=== PATIENT | male | born 1945 | race African-American/Black ===

== ENCOUNTER 2023-05-24 14:06 | Outpatient (REF) | payer MEDICARE, SELFPAY ==
[2023-05-24 15:52] LABS: Vitamin B12 477 pg/mL (200-900)
== END 2023-05-24 14:07 | disposition home or self-care (01) ==
LOC: HO.LAB 14:06
PROVIDERS: PCP Internal Medicine; Visit Provider Psychiatry & Neurology Neurology
DX: G30.9 Alzheimer's disease, unspecified (principal)
CPT/HCPCS: 36415; 82607

== ENCOUNTER 2024-07-11 09:10 | Outpatient (REF) | payer MEDICARE, SELFPAY ==
[2024-07-11 10:32] LABS: Erythrocyte Sedimentation Rate 5 MM/HR (0-15)
[2024-07-11 12:05] LABS: Folate 6.4 ng/mL (> or = 4.0); Vitamin B12 346 pg/mL (200-900)
[2024-07-11 12:50] LABS: Alanine Aminotransferase 26 U/L (0-40); Alkaline Phosphatase 86 U/L (39-117); Anion Gap 10 (12-20); Aspartate Amino Transferase 24 U/L (5-37); Bilirubin Direct 0.2 mg/dL (0.0-0.5); Blood Urea Nitrogen 14 mg/dL (9-16); Calcium 9.4 mg/dL (8.4-10.2); Carbon Dioxide 27 mmol/L (22-29); Chloride 111 mmol/L (96-108); Glucose Random 73 mg/dL (60-115); Sodium 144 mmol/L (135-145); Total Protein 7.4 g/dL (6.5-8.0)
[2024-07-11 12:59] LABS: Thyroid Stimulating Hormone 2.05 uIU/mL (0.32-4.0)
[2024-07-11 14:09] LABS: Albumin Level 4.5 g/dL (3.5-5.0); Bilirubin Total 0.6 mg/dL (0.0-1.0); Estimated Glomerular Filt Rate > 60
[2024-07-12 18:37] LABS: Lyme Abs Screen <0.90 index
== END 2024-07-11 09:11 | disposition home or self-care (01) ==
LOC: HO.LAB 09:10
PROVIDERS: PCP Internal Medicine; Visit Provider Psychiatry & Neurology Neurology
DX: G12.20 Motor neuron disease, unspecified (principal)
CPT/HCPCS: 36415; 80048; 80076; 82550; 82607; 82746; 84443; 85652; 86617; 86618

== ENCOUNTER 2024-10-10 08:21 | Outpatient (AMB) | payer MEDICARE, SELFPAY ==
--- NOTE | 2024-10-10 08:30 | MHC.OFFVIS ---
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 Initial labs including B12, TSH and folate were normal. In June of 2024, he complain of cramping and weakness. His examination revealed atrophy and fasciculations suggestive of motor neuron disease. EMG nerve conduction study suggested [id number] chronic axonal peripheral neuropathy. 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 He is presenting with concerns primarily related to dysphagia. He reports occasional difficulty swallowing, with food sometimes feeling like it hesitates or requires more perceptible effort to pass through. He acknowledges fluctuations in oral secretions without significant disruption to daily life. Handwriting has become unstable and non-linear, although his ability to perform daily activities and self-care, such as managing utensils and dressing, remains generally unaffected though slightly more labor-intensive. He reports gait difficulties, particularly during initial ambulation in the morning, accompanied by a reluctance to navigate stairs due to fear. No respiratory distress is reported. Additionally, the patient has noticed a general loss of muscle mass potentially contributing to these challenges. These symptoms reflect a broader concern of progression in physical capability and strength. [facility] Medical History (Updated 10/10/24 @ 08:48 by Valentine Randolph MD) Motor neuron disease Alzheimer disease Review of Systems Const Details: - Neurological: Reports difficulty with handwriting; denies issues with utensils or dressing. - Gastrointestinal: Reports dysphagia; denies persistent issues with swallowing. - Musculoskeletal: Reports difficulty walking, especially stairs; concerned about muscle wasting. - Respiratory: Denies breathing difficulties. - General: Reports excessive salivation intermittently. Physical Exam Neuro Other: Mental Status: Alert and oriented to person, place, and time. Normal attention. Normal spontaneous speech, fluency, and comprehension. No obvious issues with mood and memory. Affect is appropriate. Cranial Nerves: CN II: Visual zambrano full to confrontation, visual acuity intact. CN III, IV, : Pupils equal, round, reactive to light and accommodation. Extraocular movements are normal. CN V: Facial sensation is normal. CN VII: Facial movements symmetrical. CN VIII: Hearing intact to bedside conversation is normal. CN IX, X: Palate elevates symmetrically. CN XI: Shoulder shrug and head turn symmetrical. CN XII: Tongue midline without atrophy or fasciculations. Widespread atrophy in muscles with fasciculations. DTRs are trace. Extrapyramidal: Full facial expressions and blinking. No rigidity. Movements are appropriate with no tremor or abnormality. Speech: Normal; no dysarthria or tremor. 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 07/31/24 Code(s): G12.20 - Motor neuron disease, unspecified Category: Medical Plan Impression: Motor neuron disease. For now, there was no evidence of upper motor neuron involvement. Disease seems to be all lower motor neuron type. Recommendations: Ready, oral treatment was started today. Family was advised to get more information about this condition and a reference was provided. This would help to make some complex decisions that might have to be made in near future. Medications: New edaravone (Radicava ORS) 105 mg orally a day for 10 days and then off for 20 days every month; administer for 10 days of a 28-day cycle 50 mL 2RF Coding Level of Care Code Est Pt Level 4 (13331) Diagnoses Motor neuron disease G12.20
--- OUTSIDE RECORDS SUMMARY | 2024-10-10 09:01 | XMS_ITS ---
Author Name [facility] Organization Unknown Care Team Organization Name Specialty Phone Email Start Date End Da te [facility] 12/29/2021 10/10/19 24
== END 2024-10-10 08:53 | disposition home or self-care (01) ==
LOC: HO.HSM 08:22
PROVIDERS: PCP Internal Medicine; Referring Provider Internal Medicine; Visit Provider Psychiatry & Neurology Neurology
DX: G12.20 Motor neuron disease, unspecified (principal)
CPT/HCPCS: 99214

== ENCOUNTER → 2024-10-10 08:21 | Outpatient (BNVA) | payer MEDICARE, SELFPAY | PROVIDERS: PCP Internal Medicine; Referring Provider Internal Medicine; Visit Provider Psychiatry & Neurology Neurology | DX: G12.20 Motor neuron disease, unspecified (principal); F03.90 Unspecified dementia, unspecified severity, without behavioral disturbance, psychotic disturbance, mood disturbance, and anxiety; R26.9 Unspecified abnormalities of gait and mobility; R13.10 Dysphagia, unspecified | CPT/HCPCS: 99212 ==

== ENCOUNTER 2024-11-22 08:19 | Outpatient (REF) | payer MEDICARE, SELFPAY ==
--- NOTE | ~2024-11-22 | FL_ITS ---
EXAMINATION: Barium swallow with air. Clinical indications: Dysphagia COMPARISON: None. TECHNIQUE: Routine barium swallow upright with thick barium, effervescent granules and saltine crackers coated with barium was performed. Thin barium was administered in prone lying position. FINDINGS: On oral administration of thick barium there is normal propagation bolus from the oral cavity through the pharynx, esophagus into stomach without obstruction, narrowing or stricture. On oral administration of saltine crackers coated barium paste there is normal oral mastication and propagation of bolus from the oral cavity, pharynx, esophagus into stomach. No obstruction or or narrowing seen. No extrinsic compression. No laryngeal penetration and aspiration seen. There is minimal barium retention in the valleculae and piriform sinuses which clears with subsequent dry swallowing. On oral administration of thin barium in prone lying position there is normal antegrade flow of barium from the pharynx, esophagus into stomach. There is normal distention of esophagus without intraluminal filling defect. There is no extrinsic compression. There is no hiatal hernia or gastroesophageal reflux seen. FL/FL barium swallow with air IMPRESSION: Unremarkable barium in upright and lying position. Electronically signed by: Gabe Mejia MD 11/22/2024 01:03 PM EDT
--- OUTSIDE RECORDS SUMMARY | 2024-11-22 08:28 | XMS_ITS | Data Portability ---
Author Organization [place] - [facility], Allergy Address 100 [facility] 100 [place] [address] Care Team Providers Care X Ray Service Engineer Name Role Phone ISRAEL HUBBARD Primary Care Provider [phone] Assessment Encounter Date Assessment Date Assessment LastModified by Organization Details LastModified Time 10/27/2023 10/27/2023 Patient referred for medical clearance for hearing aids. He reports a slow gradual decline in hearing over the years. Reports a history of middle ear effusions. Audiometric testing not available to me today. Physical exam and tympanometry rule out effusions today. Addendum 10/28/23: Audiometric testing dated 04/20/23 from [facility] was reviewed today. Patient with bilateral mixed hearing loss. There is some asymmetry. Given age and comorbidities, would not recommend retrocochlear workup. Medically cleared for binaural amplification. Recommend annual audiometric testing, sooner with perceived change or new otologic issues. [email or web address] Not available 10/28/2023 16:44:01 Plan of Treatment Reminders Order Date Submit Date Provider Last Modified By Organization Details Last Modified Time Details Appointments None record ed. Lab None record ed. Referral None record ed. Procedures None record ed. Surgeries None record ed. Imaging None record ed. Medication Orders None record ed. Patient TargetsNo targets recorded. Patient InstructionsNo instructions recorded. Reason for Referral None Reported. Results Created Date Observation Date Name Description Value Unit Range Abnormal Flag Note LastModifiedBy Organization Detail LastModifiedTime 10/28/19 audio gram No observ ation record ed. [email or web address] Not Available 07/2023 08:41:50 Result Notes None recorded. Problems Name Problem SNOMED Code Status Onset Date Resolution Date Notes Provider Name and Address Organization Details Recorded Time Abnormal auditory perception 84130667 Active 2023 Laila mccray MA [facility] 4 11:57:54 Sensorineural hearing loss of bilateral ears 745514779 Active 2023 JAUN WASHINGTON, [facility] [address], [address] [facility] [place] 4 09:33:49 Problem Notes None recorded. Procedures Surgical History Date Name Laterality Status Provider Name and Address Organization Details Recorded Time 10/27/19 24 Tympanometry - 16681 completed Laila Duran MA [facility] 10/27/2023 11:57:35 Imaging Results None recorded. Procedure Notes None recorded. Medical Equipment None Reported. Allergies No known drug allergies Medications Name Sig Start Date Stop Date Status Note LastModified by Organization Details LastModified Time donepezil 5 mg tablet TAKE 1 TABLET BY MOUTH EVERY DAY AT BEDTIME FOR 90 DAYS 10/26 completed Not Available Not Available Not Available donepezil 10 mg tablet TAKE 1 TABLET BY MOUTH EVERY DAY AT BEDTIME active Not Available Not Available No t Available neomycin-angelcia ymyxin-dexam eth 3.5 mg/mL-10,000 unit/mL-0.1% eye drops INSTILL 1 DROP INTO BOTH EYES FOUR TIMES A DAY USE FOR 2 WEEKS THEN STOP 10/26 completed Not Available Not Available Not Available omeprazole 20 mg capsule,yi yed release TAKE 1 CAPSULE BY MOUTH EVERY DAY active Not Available Not Available No t Available Vitals Date Recorded Body height Body mass index (BMI) Body weight Provider Name and Address Organization Details Last Updated DateTime 10/27/2023 180.34 cm 21.9 kg/m2 36577 g Tona Foley [facility] 10/27/2023 10:51:51 Social History None recorded. Functional Status None recorded. Mental Status None recorded. Family History Nothing Reported. Medical History No medical history recorded. Past Encounters Encounter ID Performer Location Encounter Start Date Encounter Closed Date Diagnosis/Indication Diagnosis SNOMED-CT Code Diagnosis ICD10 Code Diagnosis IMO Codes Diagnosis Note [id number] RICKY CHASE PA-C [facility] - [facility] 100 [place] [address] 10/27/2023 10:42:26 10/27/2023 12:33:53 Abnormal auditory perception 67002734 H93.299 Tympanomet ry: Right Ear:Type A Left Ear:Type A [id number] [facility] [place] 100 [facility],[place] 100 [place] [address] 11/04/2023 09:02:54 11/07/2023 10:28:16 Sensorineural hearing loss of bilateral ears 847525865 H90.3 Health Concerns Section Related Observation LastModified by Organization Detai ls LastModified Time None Recorded Concern Status LastModified by Organization Details LastModified Time None Recorded Advance Directives Directive None Recorded Payers Insurance Date Sequence Insurance Name Policy Number Policy Dave Covered Member ID Dave Member ID Guarantor Name 11/02/2023 1 [facility] [id number] Jovan Pena [id number] Jovan Pena Notes Date Note Type Note Provider Name and Address Organization Details Recorded Time 10/27/2023 text/html ROS as noted in the HPI 78 year old male presents with son for evaluation of ears. Reports gradual bilateral decrease in hearing over several years. There is aural pressure in the ears and a sound of fluid moving when he presses on the tragus. There has been no otorrhea. Used to work in factories with lots of machinery. Intermittent use of hearing protection with that. No significant otologic history. He did have an audiogram a few weeks ago that is not available to me today. Ricky mccray [place] - [facility] [place] [facility] 10/28/2023 16:44:32 11/04/2023 text/html Pt is here today with son. Pt is a new user of hearing aids. Here today due to difficulty in some situations. He feels like he is hearing okay but the son abd family state otherwise. Lifestyle: likes to stay at home. Mostly in one on one conversations or small groups. Discussed type, technology levels, and manufacturers of hearing aids. His insurance benefit is through [employer]. He is unable to use that benefit here and is aware of this. They are going to look into the [employer] option. They have my email if they decide not to move forward with them. Type of phone: no smart phone If he is to move forward with us he will be ordering basic technology. We did not decide on flyer maker today. Leaning toward phonak due to accessible button. But he was also interested in the Widex with the remote as an add on. JAUN WASHINGTON, [address],[place] [address], [place], [address], [facility] - [facility] 11/04/2023 09:33:58
== END 2024-11-22 08:20 | disposition home or self-care (01) ==
LOC: HO.XRAY 08:19
PROVIDERS: PCP Internal Medicine; Visit Provider Psychiatry & Neurology Neurology
DX: R13.10 Dysphagia, unspecified (principal)
CPT/HCPCS: 74221

== ENCOUNTER → 2024-11-22 08:46 | Outpatient (BNV) | payer MEDICARE, SELFPAY | PROVIDERS: PCP Internal Medicine; Visit Provider Radiology Diagnostic Radiology | DX: R13.10 Dysphagia, unspecified (principal) | CPT/HCPCS: 74221 ==

== ENCOUNTER 2024-12-06 12:13 | Outpatient (AMB) | payer MEDICARE, SELFPAY ==
--- NOTE | 2024-12-06 12:32 | MHC.OFFVIS ---
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 Initial labs including B12, TSH and folate were normal. In June of 2024, he complain of cramping and weakness. His examination revealed atrophy and fasciculations suggestive of motor neuron disease. EMG nerve conduction study suggested [id number] chronic axonal peripheral neuropathy. 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 He was not having any breathing or swallowing problem. He was able to walk around. There was no significant cramping. He was mostly complaining of feeling cold. [facility] Medical History (Updated 12/06/24 @ 12:33 by Valentine Randolph MD) Motor neuron disease Alzheimer disease Review of Systems Const Details: Constitutional:?No fever, chills, fatigue, weight loss, or night sweats. HEENT:?No headache, vision changes, hearing loss, nasal congestion, sore throat. Neurological:?No dizziness, syncope, seizures, numbness, tingling, weakness, tremors, memory loss. Psychiatric:? No depression or anxiety. Endocrine:?No heat/cold intolerance, polydipsia, polyuria, or hair/skin changes. Hematologic/Lymphatic:?No easy bruising, bleeding, or lymphadenopathy. Integumentary (Skin):?No rash, lesions, itching, or color changes. ? Physical Exam Neuro Other: Mental Status: Alert and oriented to person, place, and time. Normal attention. Normal spontaneous speech, fluency, and comprehension. No obvious issues with mood and memory. Affect is appropriate. Cranial Nerves: CN II: Visual zambrano full to confrontation, visual acuity intact. CN III, IV, : Pupils equal, round, reactive to light and accommodation. Extraocular movements are normal. CN V: Facial sensation is normal. CN VII: Facial movements symmetrical. CN VIII: Hearing intact to bedside conversation is normal. CN IX, X: Palate elevates symmetrically. CN XI: Shoulder shrug and head turn symmetrical. CN XII: Tongue midline without atrophy or fasciculations. Diffuse muscle atrophy with fasciculations noted in his parascapular muscles. Deep tendon reflexes were trace to absent. Extrapyramidal: Full facial expressions and blinking. No rigidity. Movements are appropriate with no tremor or abnormality. Speech: Normal; no dysarthria or tremor. 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 07/31/24 Code(s): G12.20 - Motor neuron disease, unspecified Category: Medical (2) Alzheimer dementia: Code(s): G30.9 - Alzheimer's disease, unspecified; F02.80 - Dementia in other diseases classified elsewhere, unspecified severity, without behavioral disturbance, psychotic disturbance, mood disturbance, and anxiety Category: Medical Qualifiers: Alzheimer's disease onset: late onset Dementia severity: moderate Dementia behavioral or psychological symptom: with other behavioral disturbance Qualified Code(s): G30.1 - Alzheimer's disease with late onset; F02.B18 - Dementia in other diseases classified elsewhere, moderate, with other behavioral disturbance Plan Impression: a: Motor neuron disease with no evidence of pyramidal involvement so far b: Mild dementia probably of Alzheimer type c:Peripheral neuropathy Rec: a: Radicava if insurance approves it b: Donepezil 10mg daily 79 years old man with features of motor neuron disease though no pyramidal signs on examination. He was reassured and educated. His daughter was with him who was educated about his precise diagnosis. Clinical follow would continue. Coding Level of Care Code Est Pt Level 4 (72321) Diagnoses Motor neuron disease G12.20 Moderate late onset Alzheimer's dementia with other behavioral disturbance G30.1; F02.B18 Alzheimer's disease onset: late onset Dementia severity: moderate Dementia behavioral or psychological symptom: with other behavioral disturbance
--- OUTSIDE RECORDS SUMMARY | 2024-12-06 15:26 | XMS_ITS | Data Portability ---
Author Organization [place] - [facility], Allergy Address 100 [facility] 100 [place] [address] Care Team Providers Care Stretcher Drier Operator Name Role Phone ISRAEL HUBBARD Primary Care Provider Assessment Encounter Date Assessment Date Assessment LastModified by Organization Details LastModified Time 10/27/2023 10/27/2023 Patient referred for medical clearance for hearing aids. He reports a slow gradual decline in hearing over the years. Reports a history of middle ear effusions. Audiometric testing not available to me today. Physical exam and tympanometry rule out effusions today. Addendum 10/28/23: Audiometric testing dated 04/20/23 from [facility] was reviewed today. Patient with bilateral mixed [...] audio gram No observ ation record ed. [email or web address] Not Available 07/2023 08:41:50 Result Notes None recorded. Problems Name Problem SNOMED Code Status Onset Date Resolution Date Notes Provider Name and Address Organization Details Recorded Time Abnormal auditory perception 74253766 Active 2023 Laila mccray MA [facility] 4 11:57:54 Sensorineural hearing loss of bilateral ears 810980966 Active 2023 JAUN WASHINGTON, [facility] [address], [address] [facility] - [facility] [place] 4 09:33:49 Problem Notes None recorded. Procedures Surgical History Date Name Laterality Status Provider Name and Address Organization Details Recorded Time 10/27/19 24 Tympanometry - 01610 completed Laila Duran MA [facility] 10/27/2023 11:57:35 Imaging Results None recorded. [...] Not Available Not Available No t Available neomycin-angelica ymyxin-dexam eth 3.5 mg/mL-10,000 unit/mL-0.1% eye drops [...] Updated DateTime 10/27/2023 180.34 cm 21.9 kg/m2 91413 g Tona Foley [facility] 10/27/2023 10:51:51 Social History None recorded. Functional Status None recorded. Mental Status None recorded. Family History Nothing Reported. Medical History No medical history recorded. Past Encounters Encounter ID Performer Location Encounter Start Date Encounter Closed Date Diagnosis/Indication Diagnosis SNOMED-CT Code Diagnosis ICD10 Code Diagnosis IMO Codes Diagnosis Note [id number] RICKY CHASE PA-C [facility] - [facility] 100 [place] [address] 10/27/2023 10:42:26 10/27/2023 12:33:53 Abnormal auditory perception 08212665 H93.299 Tympanomet ry: Right Ear:Type A Left Ear:Type A [id number] [facility] [place] 100 [facility],[place] [address] 100 [place] [address] 11/04/2023 09:02:54 11/07/2023 10:28:16 Sensorineural hearing loss of bilateral ears 831653313 H90.3 Health Concerns Section Related Observation LastModified by Organization Detai ls LastModified Time None Recorded Concern Status LastModified by Organization Details LastModified Time None Recorded Advance Directives Directive None Recorded Payers Insurance Date Sequence Insurance Name Policy Number Policy Dave Covered Member ID Dave Member ID Guarantor Name 11/02/2023 1 [facility] [id number] Jovan Pena [id number] Jovan Pena Notes Date Note Type Note [...] [place] - [facility] [place] 10/28/2023 16:44:32 11/04/2023 text/html Pt is here [...] basic technology. We did not decide on clinical counselor today. Leaning toward phonak due to accessible button. But he was also interested in the Widex with the remote as an add on. JAUN WASHINGTON, [address],[place] [address], [place], [address], [facility] - [facility] 11/04/2023 09:33:58
== END 2024-12-06 12:50 | disposition home or self-care (01) ==
LOC: HO.HSM 12:13
PROVIDERS: PCP Internal Medicine; Visit Provider Psychiatry & Neurology Neurology
DX: G12.20 Motor neuron disease, unspecified (principal); G30.1 Alzheimer's disease with late onset; F02.B18 Dementia in other diseases classified elsewhere, moderate, with other behavioral disturbance
CPT/HCPCS: 99214

== ENCOUNTER → 2024-12-06 12:13 | Outpatient (BNVA) | payer MEDICARE, SELFPAY | PROVIDERS: PCP Internal Medicine; Visit Provider Psychiatry & Neurology Neurology | DX: G30.9 Alzheimer's disease, unspecified (principal); F02.B18 Dementia in other diseases classified elsewhere, moderate, with other behavioral disturbance; G12.20 Motor neuron disease, unspecified | CPT/HCPCS: 99212 ==